=== PATIENT | male | born 1965 | race Caucasian/White ===

== ENCOUNTER 2018-02-28 23:17 | Emergency (ER) | payer OTHER ==
[~2018-02-28] VITALS: Ht 170.2 cm; Wt 74.8 kg
--- NOTE | 2018-02-28 23:48 | NUR ---
LAB WITH PT FOR BLOOD DRAW.
--- NOTE | 2018-02-28 23:49 | NUR ---
URINE COLLECTED. SENT TO LAB
[2018-03-01 00:09] LABS: BASOPHILS % (AUTO) 0.5 % (0.0-2.0); EOSINOPHILS % (AUTO) 1.2 % (0.0-6.0); HEMATOCRIT 48 % (39-51); LYMPHOCYTES # (AUTO) 2.8 /CMM (0.8-4.8); MEAN CORPUSCULAR HGB CONC 33 g/dl (31.0-36.0); MEAN CORPUSCULAR VOLUME 99 fL (80-96); MONOCYTES # (AUTO) 0.7 /CMM (0.1-1.30); MONOCYTES % (AUTO) 10.3 % (2.0-12.0); NEUTROPHILS # (AUTO) 2.9 /CMM (1.8-8.9); PLATELET COUNT (AUTO) 222 /CMM (150-450); RDW COEFFICIENT OF VARIATION 13.4 (11.5-15.0); RED BLOOD CELL COUNT(AUTO) 4.84 MIL/uL (4.5-6.0); WHITE BLOOD COUNT (AUTO) 6.5 K/uL (4.3-11.0)
--- NOTE | 2018-03-01 00:17 | NUR ---
BIBSELF C/O +SI - HI PLANS TO CUT SELF. ALSO C/O CHRONIC RIGHT LEG PAIN. PT AOX3 RR EVEN AND UNLABORED. NO SOB NOTED. NAD NOTED. NO NVD AT THIS TIME. PT GOWNED AND PLACED ON MONITOR WAITING FOR MD KAPADIA.
[2018-03-01 00:19] LABS: APPEARANCE,URINE SL CLOUDY (CLEAR); BILIRUBIN,URINE NEGATIVE (NEGATIVE); BLOOD, URINE NEGATIVE Ery/uL (NEGATIVE); COLOR,URINE YELLOW (YELLOW); KETONES,URINE 1+ (NEGATIVE); LEUKOCYTE ESTERASE ,URINE NEGATIVE (NEGATIVE); NITRITE, URINE NEGATIVE (NEGATIVE); PH,URINE 5.5 (5.0-8.0); PROTEIN,URINE NEGATIVE (NEGATIVE); UGLUCOSE NEGATIVE (NEGATIVE); UROBILINOGEN,URINE 0.2 EU/dL (0.2)
[2018-03-01 00:21] LABS: CALCIUM, SERUM 9.2 mg/dL (8.5-10.1); CARBON DIOXIDE 27 mmol/L (21-32); CHLORIDE 102 mmol/L (98-107); CREATININE 1.5 mg/dL (0.6-1.3); GLUCOSE 76 mg/dL (74-106); POTASSIUM 3.8 mmol/L (3.5-5.1); SODIUM SERUM 139 mmol/L (136-145); UREA NITROGEN, BLOOD 19 mg/dL (7-18)
[2018-03-01 00:31] LABS: ACETAMINOPHEN 0 ug/ml (10-30); ALANINE AMINOTRANSFERASE 43 U/L (12-78); ALBUMIN 4.3 g/dL (3.4-5.0); ALCOHOL, BLOOD < 3 mg/dL (0-0); ALKALINE PHOSPHATASE 79 U/L (46-116); ASPARTATE AMINOTRANSFERASE 46 U/L (15-37); BILIRUBIN,DIRECT 0.1 mg/dL (0.0-0.2); BILIRUBIN,TOTAL 0.7 mg/dL (0.2-1.0); SALICYLATE 1.7 mg/dL (2.8-20.0); TOTAL PROTEIN, SERUM 9.1 g/dL (6.4-8.2)
[2018-03-01 00:42] LABS: BACTERIA,URINE Few /HPF (None Seen); RBC,URINE 0-2 /HPF (0-2); SQUAMOUS EPITHELIAL CELL,UR Rare /HPF (None Seen); WBC,URINE 0-2 /HPF (0-3)
--- NOTE | 2018-03-01 01:40 | NUR ---
nolan reddya MANAGER CLINICAL INFORMATICS at bed side for eval
--- NOTE | 2018-03-01 02:22 | NUR ---
Patient is resting comfortably in bed with eyes closed. Easily aroused. VSS.
--- NOTE | 2018-03-01 03:46 | NUR ---
Patient is resting comfortably in bed with eyes closed. Easily aroused. VSS
--- NOTE | 2018-03-01 04:52 | NUR ---
Patient is resting comfortably in bed with eyes closed. Easily aroused. VSS. pt able to make needs noted.
--- NOTE | 2018-03-01 06:13 | NUR ---
PT MOVED TO ER BED 13. PT AWARE AND WITH ALL PERSONAL BELONGINGS. VSS.
--- NOTE | 2018-03-01 07:40 | NUR ---
rPatient is resting comfortably in bed with eyes closed. Easily aroused. VSS
--- NOTE | 2018-03-01 10:00 | NUR ---
Patient is resting comfortably in bed with eyes closed. Easily aroused. VSS
--- NOTE | 2018-03-01 11:43 | NUR ---
PAGED CLAY DA SILVA.
--- NOTE | 2018-03-01 12:10 | NUR ---
PT PROVIDED WITH FOOD TRAY.
--- NOTE | 2018-03-01 13:19 | NUR ---
SEEN BY ELOINA ASHER,CANDY BAR ATTENDANT, WAITING FOR [facility] TO [facility]
--- NOTE | 2018-03-01 13:29 | NUR ---
RECEIVED CALL FROM KALI, HRIS ADMINISTRATOR, HE TOLD ME TO FAX PACKET TO [facility],
--- NOTE | 2018-03-01 13:50 | NUR ---
Pt ambulatory with a steady gait.
--- NOTE | 2018-03-01 14:14 | NUR ---
CALL FROM KHUSHBOO,INTAKE AT [facility], REFUSED TO TAKE HIM SINCE HE JUST LEFT AMA 2 DAYS AGO
--- NOTE | 2018-03-01 14:29 | NUR ---
Patient discharged to home in stable condition. Written and verbal after care instructions given. Patient verbalizes understanding of instruction.
[2018-03-01 14:30] VITALS: BP 122/74
== END 2018-03-01 14:32 | disposition home or self-care (01) ==
LOC: ER 23:25
DX: R45.851 Suicidal ideations (principal); F19.10 Other psychoactive substance abuse, uncomplicated; F32.9 Major depressive disorder, single episode, unspecified; F17.200 Nicotine dependence, unspecified, uncomplicated; G89.29 Other chronic pain; Z60.2 Problems related to living alone
CPT/HCPCS: 36415; 80048; 80076; 80305; 80329; 81001; 85025; 99284; A4606 ×2; G0480 ×2; Z7610 ×2; 81000-TC

== ENCOUNTER 2018-03-12 01:54 | Emergency (ER) | payer OTHER ==
[~2018-03-12] VITALS: Ht 170.2 cm; Wt 74.8 kg
--- NOTE | 2018-03-12 02:12 | NUR ---
PT A/O X4. C/C OF PSYCH EVAL. PT STATES," I HEAR VOICES AND THEY ARE TELLING ME TO CUT MYSELF." NEG ACUTE DISTRESS. VSS. STABLE CONDITION. SAFETY MEASURES IN PLACE.
--- NOTE | 2018-03-12 02:50 | NUR ---
LAB AT BEDSIDE
[2018-03-12 03:00] LABS: BASOPHILS # (AUTO) 0.1 /CMM (0.0-0.2); BASOPHILS % (AUTO) 0.7 % (0.0-2.0); EOSINOPHILS % (AUTO) 1.1 % (0.0-6.0); HEMATOCRIT 42 % (39-51); HEMOGLOBIN 14.3 g/dL (13.5-17.5); LYMPHOCYTES # (AUTO) 1.8 /CMM (0.8-4.8); MEAN CORPUSCULAR HGB CONC 34 g/dl (31.0-36.0); MEAN CORPUSCULAR VOLUME 99 fL (80-96); MONOCYTES # (AUTO) 0.4 /CMM (0.1-1.30); MONOCYTES % (AUTO) 5.4 % (2.0-12.0); NEUTROPHILS # (AUTO) 5.6 /CMM (1.8-8.9); NEUTROPHILS % (AUTO) 70.8 % (43.0-81.0); PLATELET COUNT (AUTO) 217 /CMM (150-450); RDW COEFFICIENT OF VARIATION 12.5 (11.5-15.0); RED BLOOD CELL COUNT(AUTO) 4.26 MIL/uL (4.5-6.0); WHITE BLOOD COUNT (AUTO) 7.9 K/uL (4.3-11.0)
[2018-03-12 03:19] LABS: ALANINE AMINOTRANSFERASE 32 U/L (12-78); ALBUMIN 3.5 g/dL (3.4-5.0); ALCOHOL, BLOOD < 3 mg/dL (0-0); ALKALINE PHOSPHATASE 81 U/L (46-116); ASPARTATE AMINOTRANSFERASE 22 U/L (15-37); BILIRUBIN,TOTAL 0.4 mg/dL (0.2-1.0); CALCIUM, SERUM 8.8 mg/dL (8.5-10.1); CARBON DIOXIDE 26 mmol/L (21-32); CHLORIDE 103 mmol/L (98-107); CREATININE 1.3 mg/dL (0.6-1.3); GLUCOSE 160 mg/dL (74-106); POTASSIUM 3.7 mmol/L (3.5-5.1); SODIUM SERUM 138 mmol/L (136-145); TOTAL PROTEIN, SERUM 7.8 g/dL (6.4-8.2); UREA NITROGEN, BLOOD 19 mg/dL (7-18)
[2018-03-12 03:20] LABS: APPEARANCE,URINE CLEAR (CLEAR); BILIRUBIN,URINE NEGATIVE (NEGATIVE); BLOOD, URINE NEGATIVE Ery/uL (NEGATIVE); COLOR,URINE YELLOW (YELLOW); KETONES,URINE NEGATIVE (NEGATIVE); LEUKOCYTE ESTERASE ,URINE NEGATIVE (NEGATIVE); NITRITE, URINE NEGATIVE (NEGATIVE); PROTEIN,URINE NEGATIVE (NEGATIVE); UGLUCOSE NEGATIVE (NEGATIVE); UROBILINOGEN,URINE 0.2 EU/dL (0.2)
[2018-03-12 03:26] LABS: ACETAMINOPHEN 0 ug/ml (10-30); SALICYLATE 1.4 mg/dL (2.8-20.0)
--- NOTE | 2018-03-12 04:13 | NUR ---
CALLED LAKESHIA DA SILVA FOR PSYCH EVAL.
--- NOTE | 2018-03-12 04:58 | NUR ---
AVINASH AT BEDSIDE FOR EVAL.
--- NOTE | 2018-03-12 05:58 | NUR ---
PER [place] DA SILVA FOR SO.LITO [facility] WILL F/U FOR AVAILABLE BED.
--- NOTE | 2018-03-12 07:27 | NUR ---
PT STABLE CONDITION. VSS. STABLE CONDITION. SAFETY MEASURES IN PLACE. ENDORSED TO LAKESHIA MELENDREZ
--- NOTE | 2018-03-12 07:53 | NUR ---
PT REC'D BREAKFAST TRAY.
--- NOTE | 2018-03-12 09:16 | NUR ---
SPOKE TO NICKY AT [facility] [phone]. NO AVAILABLE BED AT THIS TIME, WAITING FOR DISCHARGES. HE WILL CALL BACK SOON BED IS AVAILABLE.
[2018-03-12 11:58] VITALS: BP 128/84
--- NOTE | 2018-03-12 11:58 | NUR ---
PT. VERBALIZED UNDERSTANDING OF AFTERCARE INSTRUCTIONS.Patient discharged to home in stable condition. Written and verbal after care instructions given. Patient verbalizes understanding of instruction.
== END 2018-03-12 11:59 | disposition home or self-care (01) ==
LOC: ER 01:54
DX: R45.851 Suicidal ideations (principal); F12.10 Cannabis abuse, uncomplicated; F19.10 Other psychoactive substance abuse, uncomplicated; F17.200 Nicotine dependence, unspecified, uncomplicated; F41.9 Anxiety disorder, unspecified; F32.9 Major depressive disorder, single episode, unspecified; Z60.2 Problems related to living alone; Z98.890 Other specified postprocedural states
CPT/HCPCS: 36415; 73564; 80048; 80076; 80305; 80329; 81001; 85025; 99285; A4606; G0480 ×2; Z7610; 81000-TC

== ENCOUNTER 2018-03-17 01:49 | Emergency (ER) | payer OTHER ==
[~2018-03-17] VITALS: Ht 170.2 cm; Wt 74.8 kg
[2018-03-17 01:59] VITALS: BP 152/82
[2018-03-17] MEDS ORDERED: ACETAMINOPHEN ES 500 MG TABLET PO ONE (02:00)
[2018-03-17] MEDS ORDERED: IBUPROFEN 400 MG TABLET PO ONE (02:00)
== END 2018-03-17 02:09 | disposition left against medical advice (07) ==
LOC: ER 01:51
DX: M25.561 Pain in right knee (principal); F41.9 Anxiety disorder, unspecified; F32.9 Major depressive disorder, single episode, unspecified; F17.200 Nicotine dependence, unspecified, uncomplicated; Z60.2 Problems related to living alone
CPT/HCPCS: 99283; A4606; Z7610

== ENCOUNTER 2019-11-10 03:37 | Emergency (ER) | payer OTHER ==
[~2019-11-10] VITALS: Ht 170.2 cm; Wt 74.8 kg
--- NOTE | 2019-11-10 03:47 | NUR ---
PT CAME TO ER C/O SUICIDAL IDEATION. PT STATES THAT HE HAS THOUGHT ABOUT KILLING HIMSELF BY RUNNING THROUGH TRAFFIC. DENIES AUDITORY OR VISUAL HALLUCINATION. PT IS AAOX4. NO SOB. BREATHING EVENLY AND UNLABORED. PT'S CLOTHING IS REMOVED, PLACED INTO A GOWN AND PATIENT'S BELONGINGS ARE PLACED SAFELY IN A LOCKER. SITTER AT BEDSIDE.
--- NOTE | 2019-11-10 03:50 | NUR ---
URINE PROVIDED AND SENT TO LAB
[2019-11-10 04:07] LABS: BASOPHILS # (AUTO) 0.1 /CMM (0.0-0.2); BASOPHILS % (AUTO) 1.1 % (0.0-2.0); EOSINOPHILS % (AUTO) 1.5 % (0.0-6.0); HEMATOCRIT 45 % (39-51); HEMOGLOBIN 15.5 g/dL (13.5-17.5); LYMPHOCYTES # (AUTO) 2.6 /CMM (0.8-4.8); LYMPHOCYTES % (AUTO) 42.5 % (20.0-44.0); MEAN CORPUSCULAR HGB CONC 34 g/dl (31.0-36.0); MEAN CORPUSCULAR VOLUME 98 fL (80-96); MONOCYTES # (AUTO) 0.4 /CMM (0.1-1.30); MONOCYTES % (AUTO) 6.1 % (2.0-12.0); NEUTROPHILS % (AUTO) 48.8 % (43.0-81.0); PLATELET COUNT (AUTO) 197 /CMM (150-450); RED BLOOD CELL COUNT(AUTO) 4.62 MIL/uL (4.5-6.0); WHITE BLOOD COUNT (AUTO) 6.1 K/uL (4.3-11.0)
[2019-11-10 04:08] LABS: APPEARANCE,URINE Clear (CLEAR); BILIRUBIN,URINE Negative (NEGATIVE); BLOOD, URINE Negative Ery/uL (NEGATIVE); COLOR,URINE Yellow (YELLOW); KETONES,URINE Negative (NEGATIVE); LEUKOCYTE ESTERASE ,URINE Negative (NEGATIVE); NITRITE, URINE Negative (NEGATIVE); PH,URINE 5.5 (5.0-8.0); PROTEIN,URINE Negative (NEGATIVE); UGLUCOSE Negative (NEGATIVE); UROBILINOGEN,URINE 0.2 EU/dL (0.2)
[2019-11-10 04:15] LABS: CARBON DIOXIDE 28 mmol/L (21-32); CHLORIDE 107 mmol/L (98-107); CREATININE 1.4 mg/dL (0.6-1.3); GLUCOSE 79 mg/dL (74-106); POTASSIUM 3.4 mmol/L (3.5-5.1); SODIUM SERUM 144 mmol/L (136-145); UREA NITROGEN, BLOOD 22 mg/dL (7-18)
[2019-11-10 04:20] LABS: ALANINE AMINOTRANSFERASE 28 U/L (12-78); ALKALINE PHOSPHATASE 80 U/L (46-116); ASPARTATE AMINOTRANSFERASE 25 U/L (15-37); BILIRUBIN,DIRECT 0.1 mg/dL (0.0-0.2); BILIRUBIN,TOTAL 0.4 mg/dL (0.2-1.0); TOTAL PROTEIN, SERUM 7.9 g/dL (6.4-8.2)
[2019-11-10 04:22] LABS: SALICYLATE 0.9 mg/dL (2.8-20.0)
[2019-11-10 04:23] LABS: ACETAMINOPHEN 0 ug/ml (10-30); ALCOHOL, BLOOD < 3 mg/dL (0-0)
--- NOTE | 2019-11-10 05:19 | NUR ---
[facility] PULLER AT BEDSIDE
[2019-11-10] MEDS ORDERED: POTASSIUM CHLORIDE 20 MEQ TAB.PRT.SR PO ONE ×2 (06:54→07:00)
--- NOTE | 2019-11-10 07:06 | NUR ---
PATIENT IS SLEEPING. EASILY AROUSABLE THROUGH TACTILE AND VERBAL STIMULI. PATIENT IS BREATHING EVENLY AND UNLABORED ON ROOM AIR. CONNECTED TO MONITOR. SITTER AT BEDSIDE. WILL CONTINUE TO MONITOR.
--- NOTE | 2019-11-10 07:35 | NUR ---
Guillerminaletty shirley patient is accepted at [facility] accepting MD Dr. Peng, report [phone] unit 1. room 106-A
--- NOTE | 2019-11-10 07:46 | NUR ---
Report given to Ileana from [facility] dickerson for john.
--- NOTE | 2019-11-10 08:03 | NUR ---
CALLED [id number] [phone] SPOKE WITH AL TRIP # [id number] ETA IS 1000
[2019-11-10 10:02] VITALS: BP 126/88
--- NOTE | 2019-11-10 10:27 | NUR ---
report given to emt tx for john
== END 2019-11-10 10:29 ==
LOC: ER 03:44
DX: R45.851 Suicidal ideations (principal); F20.9 Schizophrenia, unspecified; F31.9 Bipolar disorder, unspecified; F17.200 Nicotine dependence, unspecified, uncomplicated; F15.10 Other stimulant abuse, uncomplicated; Z60.2 Problems related to living alone
CPT/HCPCS: 36415; 80048; 80076; 80305; 80307; 80329; 81001; 85025; 99285; G0480; 81000-TC

== ENCOUNTER 2019-12-21 14:24 | Emergency (ER) | payer OTHER ==
[~2019-12-21] VITALS: Ht 170.2 cm; Wt 79.4 kg
--- NOTE | 2019-12-21 14:54 | NUR ---
PT REC;D TO ER NEEDS CLEARANCE QUITE AND CALM GIVEN LUNCH L;AB AT BEDSIDE DRAWN BLOOD SENT TO LAB UNABLE TO GIVE UA AT THIS TIME AWAITING EVALUATION BY ER PROVIDER.
[2019-12-21 14:58] LABS: BASOPHILS % (AUTO) 0.6 % (0.0-2.0); EOSINOPHILS % (AUTO) 1.7 % (0.0-6.0); HEMATOCRIT 41 % (39-51); HEMOGLOBIN 13.7 g/dL (13.5-17.5); LYMPHOCYTES # (AUTO) 1.4 /CMM (0.8-4.8); LYMPHOCYTES % (AUTO) 37.8 % (20.0-44.0); MEAN CORPUSCULAR HGB CONC 34 g/dl (31.0-36.0); MEAN CORPUSCULAR VOLUME 98 fL (80-96); MONOCYTES # (AUTO) 0.3 /CMM (0.1-1.30); MONOCYTES % (AUTO) 6.8 % (2.0-12.0); NEUTROPHILS % (AUTO) 53.1 % (43.0-81.0); PLATELET COUNT (AUTO) 193 /CMM (150-450); RED BLOOD CELL COUNT(AUTO) 4.16 MIL/uL (4.5-6.0); WHITE BLOOD COUNT (AUTO) 3.8 K/uL (4.3-11.0)
--- NOTE | 2019-12-21 15:08 | NUR ---
ULTRASOUND DONE JUAN LEGS DONE AT BEDISE
[2019-12-21 15:12] LABS: ACETAMINOPHEN 0 ug/ml (10-30); ALANINE AMINOTRANSFERASE 20 U/L (12-78); ALBUMIN 2.9 g/dL (3.4-5.0); ALCOHOL, BLOOD < 3 mg/dL (0-0); ALKALINE PHOSPHATASE 70 U/L (46-116); ASPARTATE AMINOTRANSFERASE 20 U/L (15-37); BILIRUBIN,DIRECT 0.1 mg/dL (0.0-0.2); BILIRUBIN,TOTAL 0.3 mg/dL (0.2-1.0); CALCIUM, SERUM 8.5 mg/dL (8.5-10.1); CARBON DIOXIDE 27 mmol/L (21-32); CHLORIDE 104 mmol/L (98-107); CREATININE 1.5 mg/dL (0.6-1.3); GLUCOSE 106 mg/dL (74-106); POTASSIUM 3.8 mmol/L (3.5-5.1); SALICYLATE 0.5 mg/dL (2.8-20.0); SODIUM SERUM 139 mmol/L (136-145); TOTAL PROTEIN, SERUM 6.4 g/dL (6.4-8.2); UREA NITROGEN, BLOOD 13 mg/dL (7-18)
--- NOTE | 2019-12-21 15:24 | NUR ---
SCOTT SENT TO LAB PT SLEEPING SOUNDLY
[2019-12-21 15:49] LABS: APPEARANCE,URINE CLEAR (CLEAR); BILIRUBIN,URINE NEGATIVE (NEGATIVE); BLOOD, URINE NEGATIVE Ery/uL (NEGATIVE); COLOR,URINE YELLOW (YELLOW); KETONES,URINE NEGATIVE (NEGATIVE); LEUKOCYTE ESTERASE ,URINE NEGATIVE (NEGATIVE); NITRITE, URINE NEGATIVE (NEGATIVE); PH,URINE 7.5 (5.0-8.0); PROTEIN,URINE NEGATIVE (NEGATIVE); UGLUCOSE NEGATIVE (NEGATIVE)
[2019-12-21 16:01] LABS: BACTERIA,URINE None seen /HPF (None Seen); RBC,URINE 0-2 /HPF (0-2); SQUAMOUS EPITHELIAL CELL,UR 0-2 /HPF (None Seen); WBC,URINE 0-2 /HPF (0-3)
--- NOTE | 2019-12-21 17:00 | NUR ---
CALLED [facility] [phone] GOT THE CLINICALL[facility] AWAITING DISCHARGES. WILL CALL US BACK IN 30-60 MINS.
--- NOTE | 2019-12-21 17:26 | NUR ---
pt amb to br voided back to bed
--- NOTE | 2019-12-22 01:06 | NUR ---
PT ACCEPTED AT [facility] MD: # [phone] EXT [phone]
[2019-12-22 01:09] VITALS: BP 119/72
--- NOTE | 2019-12-22 01:13 | NUR ---
CALLED [facility], CALLBACK AFTER 10 MINS PER CHARGE NURSE.
--- NOTE | 2019-12-22 01:19 | NUR ---
[facility] THE CAR CALLED FOR TRANSPORT. #[phone]. PENDING ETA.
--- NOTE | 2019-12-22 01:24 | NUR ---
ETA 30-40 MINS [facility].
--- NOTE | 2019-12-22 01:40 | NUR ---
REPORT GIVEN TO LAKESHIA TINEO OF [facility].
--- NOTE | 2019-12-22 02:25 | NUR ---
REPORT GIVEN TO EMS FOR PT TRANSFER TO [facility].
== END 2019-12-22 02:31 ==
LOC: ER 14:24
DX: R45.851 Suicidal ideations (principal); F20.9 Schizophrenia, unspecified; F31.9 Bipolar disorder, unspecified; Z60.2 Problems related to living alone
CPT/HCPCS: 36415; 80048; 80076; 80305; 80307; 80329; 81001; 85025; 99285; G0480; 81000-TC

== ENCOUNTER 2020-01-06 23:12 | Emergency (ER) | payer OTHER ==
[~2020-01-06] VITALS: Ht 170.2 cm; Wt 77.1 kg
--- NOTE | 2020-01-06 23:34 | NUR ---
BIBS FOR C/O SI W. PLAN TO RUN IN TO TRAFFIC
--- NOTE | 2020-01-06 23:35 | NUR ---
PT placed in gown, ashley in locker. Pt provided urine sample. Sitter at bedside. Pt placed on monitor and pulse ox. vss.
--- NOTE | 2020-01-06 23:37 | NUR ---
Security called for wanding.
[2020-01-06 23:54] LABS: BASOPHILS # (AUTO) 0.1 /CMM (0.0-0.2); BASOPHILS % (AUTO) 0.8 % (0.0-2.0); EOSINOPHILS % (AUTO) 1.1 % (0.0-6.0); HEMATOCRIT 44 % (39-51); LYMPHOCYTES # (AUTO) 2.2 /CMM (0.8-4.8); LYMPHOCYTES % (AUTO) 33.5 % (20.0-44.0); MEAN CORPUSCULAR HGB CONC 34 g/dl (31.0-36.0); MEAN CORPUSCULAR VOLUME 98 fL (80-96); MONOCYTES # (AUTO) 0.6 /CMM (0.1-1.30); MONOCYTES % (AUTO) 8.4 % (2.0-12.0); NEUTROPHILS # (AUTO) 3.8 /CMM (1.8-8.9); NEUTROPHILS % (AUTO) 56.2 % (43.0-81.0); PLATELET COUNT (AUTO) 219 /CMM (150-450); RED BLOOD CELL COUNT(AUTO) 4.55 MIL/uL (4.5-6.0); WHITE BLOOD COUNT (AUTO) 6.7 K/uL (4.3-11.0)
[2020-01-06] MEDS ORDERED: OLANZAPINE 5 MG TABLET ONE (23:57)
[2020-01-07] MEDS ORDERED: OLANZAPINE 5 MG TABLET PO ONE
[2020-01-07 00:05] LABS: APPEARANCE,URINE Clear (CLEAR); BILIRUBIN,URINE Negative (NEGATIVE); BLOOD, URINE Negative Ery/uL (NEGATIVE); COLOR,URINE Yellow (YELLOW); KETONES,URINE Trace (NEGATIVE); LEUKOCYTE ESTERASE ,URINE Negative (NEGATIVE); NITRITE, URINE Negative (NEGATIVE); PROTEIN,URINE Negative (NEGATIVE); UGLUCOSE Negative (NEGATIVE)
--- NOTE | 2020-01-07 00:17 | NUR ---
Patient is resting comfortably in bed with eyes closed. Easily aroused. VSS.
[2020-01-07 00:20] LABS: CALCIUM, SERUM 9.1 mg/dL (8.5-10.1); CARBON DIOXIDE 27 mmol/L (21-32); CHLORIDE 104 mmol/L (98-107); CREATININE 1.3 mg/dL (0.6-1.3); GLUCOSE 117 mg/dL (74-106); POTASSIUM 3.9 mmol/L (3.5-5.1); SODIUM SERUM 139 mmol/L (136-145); UREA NITROGEN, BLOOD 17 mg/dL (7-18)
[2020-01-07 00:24] LABS: ACETAMINOPHEN 0 ug/ml (10-30); ALANINE AMINOTRANSFERASE 52 U/L (12-78); ALBUMIN 3.9 g/dL (3.4-5.0); ALCOHOL, BLOOD < 3 mg/dL (0-0); ALKALINE PHOSPHATASE 77 U/L (46-116); ASPARTATE AMINOTRANSFERASE 109 U/L (15-37); BILIRUBIN,DIRECT 0.1 mg/dL (0.0-0.2); BILIRUBIN,TOTAL 0.6 mg/dL (0.2-1.0); TOTAL PROTEIN, SERUM 7.8 g/dL (6.4-8.2)
--- NOTE | 2020-01-07 00:52 | NUR ---
CLINICAL INFORMATION FAXED TO [facility]
--- NOTE | 2020-01-07 05:27 | NUR ---
PER MARTY FROM [facility], NO BEDS AVAILABLE AT THIS TIME
--- NOTE | 2020-01-07 05:56 | NUR ---
PT ASLEEP. EASILY AROUSED.
--- NOTE | 2020-01-07 06:30 | NUR ---
PT ACCEPTED TO [facility] ACCEPTING MD: DR. HERNANDEZ/DR. BUSH NUMBER FOR REPORT: [phone] EXT [phone]
--- NOTE | 2020-01-07 06:39 | NUR ---
CALLED CALL THE CAR FOR TRANSPORTATION. ETA [phone] [facility]. CONFIRMATION #[id number]
--- NOTE | 2020-01-07 10:20 | NUR ---
Patient a/ox4, breathing even and unlabored, seen by social service director. Patient denies si/hi and requested to be discharged. Patient given written and verbal discharge instructions. Patient verbalizes understanding of instructions. Patient is ambulatory with steady gait. Refuses offer of group home placement. Patient given list of available shelters in surrounding area. Food given, tap card unnecessary at this time.
[2020-01-07 10:21] VITALS: BP 124/93
--- NOTE | 2020-01-07 10:36 | NUR ---
SOCIAL SERVICE CONTACT: SW received a call from ED for follow up with [facility]. SW was informed by RN that pt was initially accepted to [facility], however, upon nurse to nurse report RN was informed that there was confusion with pts documentation and therefore pt had not been accepted. SW met with pt at bedside and informed him that he had not been accepted to [facility]. Pt stated that he did not want to go [facility] and that he preferred to go to [facility] or [place]. SW informed him that there were no beds available at either of those locations. SW asked pt where he wanted to go and pt stated he wanted to be discharged back to the streets, AYUSH provided pt with the option to be discharged to [facility] and pt accepted. Pt denied suicidal/homicidal ideation and denied visual/auditory hallucinations. SW provided pt with homeless resources and directions to [facility] urgent Care and also pt signed the Homeless Waiver and AYUSH placed copies in pts chart.
== END 2020-01-07 10:22 | disposition home or self-care (01) ==
LOC: ER 23:14
DX: R45.851 Suicidal ideations (principal); F20.9 Schizophrenia, unspecified; F31.9 Bipolar disorder, unspecified; Z60.2 Problems related to living alone
CPT/HCPCS: 36415; 80048; 80076; 80305; 80307; 80329; 81001; 85025; 99285; G0480; 81000-TC